=== PATIENT | female | born 1975 | race Caucasian/White ===

== ENCOUNTER 2017-06-26 11:39 | Emergency (ER) | payer BC ==
[2017-06-26 12:59] VITALS: BP 120/74
--- NOTE | 2017-06-26 13:16 | UC ---
Throat Pain/Nasal Mt HPI - HPI Summary HPI Summary: 42 y/o female presents to the urgent care c/o sore throat for the past 5 days. she also thinks she has a thrush since her tongue has a yellowish coat this morning. She states difficulty swallowing,w/ a dry cough. Pt denies nasal congestion, cough, fever, SOB, chest pain, N/V/D. Pt has not other complains. - History of Current Complaint Chief Complaint: UCGeneralIllness Stated Complaint: SORE THROAT,THRUSH(?) Time Seen by Provider: 06/26/17 13:15 Hx Obtained From: Patient Hx Last Menstrual Period: 05/27/17, tubal 2003 ?: No Onset/Duration: Gradual Onset, Lasting Days, Still Present Severity: Moderate Pain Intensity: 5 Pain Scale Used: 0-10 Numeric Cough: Nonproductive Associated Signs & Symptoms: Positive: Dysphagia. Negative: Fever, Vomiting, Rash Related History: Seasonal Allergies - Allergies/Home Medications Allergies/Adverse Reactions: Allergies Allergy/AdvReac Type Severity Reaction Status Date / Time Doxycycline Allergy Rash Verified 06/26/17 12:59 Home Medications: Home Medications Atorvastatin* [Lipitor 80 MG*] 80 mg PO 1700 06/26/17 [History Confirmed ] Glucosamine-Chondroitin [Glucosamine & Chondroitin 500-400 mg] 1 tab PO DAILY [History Confirmed 06/26/17] Levothyroxine TAB* [Synthroid 150 MCG TAB*] 150 mcg PO DAILY 06/26/17 [History Confirmed 06/26/17] Linaclotide [Linzess] 72 mcg PO DAILY 06/26/17 [History Confirmed 06/26/17] Multivitamins/Minerals TAB* [Thera M Plus TAB*] 1 tab PO DAILY 06/26/17 [ History Confirmed 06/26/17] Omeprazole CAP* [Prilosec CAP* 20 MG] 20 mg PO DAILY 06/26/17 [History Confirmed 06/26/17] PMH/Surg Hx/FS Hx/Imm Hx Previously Healthy: Yes Endocrine History: Hypothyroidism, Dyslipidemia Other GI/ History: IBS - Surgical History Surgical History: Yes Surgery Procedure, Year, and Place: tubal - Family History Family History: Dyslipidemia - Social History Occupation: Employed Full-time Lives: With Family Alcohol Use: Occasionally Substance Use Type: None Smoking Status (MU): Heavy Every Day Tobacco Smoker Amount Used/How Often: 1 ppd Review of Systems Constitutional: Negative Skin: Negative Eyes: Negative ENT: Sore Throat, Other - white tongue Respiratory: Negative Gastrointestinal: Negative Genitourinary: Negative Motor: Negative Neurovascular: Negative Musculoskeletal: Negative Neurological: Negative Psychological: Negative All Other Systems Reviewed And Are Negative: Yes Physical Exam Triage Information Reviewed: Yes Appearance: Well-Appearing, No Pain Distress, Well-Nourished Vital Signs: Initial Vital Signs Temp 97.6 F 06/26/17 12:56 Pulse 73 06/26/17 12:56 Resp 16 06/26/17 12:56 BP 120/74 06/26/17 12:56 Pulse Ox 100 06/26/17 12:56 Vital Signs Reviewed: Yes Eye Exam: Normal Eyes: Positive: Conjunctiva Clear - PERRLA, EOMI, fundi grossly normal ENT Exam: Normal ENT: Positive: Normal ENT inspection, Hearing grossly normal, Pharyngeal erythema, Nasal congestion - edematous and erythematous nasal mucosa, TMs normal , Tonsillar swelling, Other: - yellowish coat in the tongue, non tender to palapation. Negative: Tonsillar exudate Dental Exam: Normal Neck exam: Normal Neck: Positive: Supple, Nontender, Enlarged Nodes @ - anterior cervical non tender on palpation Respiratory Exam: Normal Respiratory: Positive: Chest non-tender, Lungs clear, Normal breath sounds Cardiovascular Exam: Normal Cardiovascular: Positive: RRR, No Murmur, Pulses Normal Abdominal Exam: Normal Abdomen Description: Positive: Nontender, No Organomegaly, Soft. Negative: CVA Tenderness (R), CVA Tenderness (L) Bowel Sounds: Positive: Present Musculoskeletal Exam: Normal Musculoskeletal: Positive: Strength Intact, ROM Intact Neurological Exam: Normal Psychological Exam: Normal Skin Exam: Normal Throat Pain/Nasal Course/Dx - Course Course Of Treatment: d42 y/o female presents to the urgent care c/o sore throat for the past 5 days. she also thinks she has a thrush since her tongue has a yellowish coat this morning. She states difficulty swallowing,w/ a dry cough. Pt denies fever, SOB, chest pain, N/V/D. HX obtained. Rapid strep ordered, Result: negative. Pt Rx ibuprofen PO after meals for viral pharyngitis. Clotrimazole mark for oral candidiasis. Increase fluids and rest. If not resolution of symptoms to f/u with her PCP for further evaluation and treatment. Pt understood and agreed - Differential Dx/Diagnosis Differential Diagnosis/HQI/PQRI: Laryngitis, Mononucleosis, Pharyngitis, Tonsillitis, Other - thrush Provider Diagnoses: 1-Viral pharyngitis. 2-oral candidiasis Discharge - Discharge Plan Condition: Stable Disposition: HOME Prescriptions: Clotrimazole MARK* [Mycelex Mark*] 10 mg MT SEE INSTRUCTIONS #1 shannon Ibuprofen TAB* [Motrin TAB* 800 MG] 800 mg PO Q6H #20 tab Patient Education Materials: Pharyngitis (ED), Oral Candidiasis (ED) Referrals: Jenny Perez [Primary Care Provider] - Additional Instructions: 1-Take ibuprofen as instructed after meals to alleviate pain and swelling. If symptoms do not improve or worsen please return to the urgent care or f/u with your PCP for further evaluation and treatment 2- Take the medication as directed for your Oral candidiasis. If symptoms do not improve f/u with your PCP
== END 2017-06-26 13:49 | disposition home or self-care (01) ==
LOC: EDBD → UCCORT 11:39
DX: J02.8 Acute pharyngitis due to other specified organisms (principal); B37.0 Candidal stomatitis; E03.9 Hypothyroidism, unspecified; E78.5 Hyperlipidemia, unspecified; K58.9 Irritable bowel syndrome, unspecified; Z88.1 Allergy status to other antibiotic agents; F17.210 Nicotine dependence, cigarettes, uncomplicated
CPT/HCPCS: 87651; 99202; G0463